=== PATIENT | female | born 1965 | race Caucasian/White ===

== ENCOUNTER 2016-06-14 09:45 | Emergency (ER) | payer OTHER ==
[2016-06-14] MEDS ORDERED: NS 1,000 ML IV ONE (10:17)
[2016-06-14] MEDS ORDERED: DIAZEPAM 10 MG/2 ML SYR IVP ONE ×3 (10:25→11:51)
[2016-06-14 10:45] LABS: % IMMATURE GRANULYOCYTES 0.3 % (0.0-1.1); ABSOLUTE IMMATURE GRANULOCYTES 0.03 10^3/uL (0.00-0.10); ADD DIFF? NO; ADD MORPH? NO; ADD SCAN? NO; ATYPICAL LYMPHOCYTE FLAG 0 (0-99); FRAGMENT RBC FLAG 0 (0-99); HEMATOCRIT 44.7 % (38.0-47.0); HEMOGLOBIN 15.7 g/dL (12.6-16.3); LEFT SHIFT FLG 0 (0-99); LIPEMIA HEMOLYSIS FLAG 90 (0-99); MEAN CELL HEMOGLOBIN CONCENTR. 35.1 g/dL (32.4-36.7); MEAN CELL VOLUME 85.5 fL (81.5-99.8); MEAN PLATELET VOLUME 8.9 fL (8.7-11.7); PLATELET CLUMPS FLAG 20 (0-99); PLATELET COUNT 280 10^3/uL (150-400); RED BLOOD CELL COUNT 5.23 10^6/uL (4.18-5.33); RED CELL DISTRIBUTION WIDTH 11.9 % (11.5-15.2)
[2016-06-14 10:46] LABS: COLOR YELLOW; LEUKOCYTE ESTERASE,URINE 1+ (NEGATIVE); NITRITE,URINE NEGATIVE (NEGATIVE); PH,URINE 7.5 (5.0-7.5)
--- NOTE | 2016-06-14 10:47 | UCPHY ---
H & P Patient Type: Established Time Seen by Provider: 06/14/16 09:57 HPI/ROS: This patient complains of severe diffuse muscle spasms in aches. She thinks this may be attributable to a TNF forrest medication that she started taking as injection once a month for her ankylosing spondylitis. The medication is golimumab ("Simponi"). After 1st dose of this taking the beginning of May resulted in some similar symptoms of lesser intensity and labs at that time drawn on 05/17 revealed a CPK of 340. Comp metabolic panel was normal at that time. Her ALT was minimally elevated at 99 and AST to 72. She hydrated had gradual improvement. After her 2nd injection-self injection to the leg at home on June 11 she has had gradually increasing muscle spasms to the hamstrings bilaterally, calf bilaterally back muscles in the neck muscles with increasing pain that is now severe intensity. She was prescribed Percocet but she does not like how she feels on Percocet so she has not taken this. Her recent history is also notable for right upper extremity the surgery to decompress ulnar neuropathy by Dr. Le on June 02. The Percocet was prescribed at that time. She reports mild arm pain is in a Ortho Glass splint since that surgery. ROS: No recent fevers or chills though she did have a febrile illness treated with an unknown antibiotic over the past week. She reports a skin rash over her joints and chest that is slightly burning in nature present since the injection on the -within 24 hours and she thinks that is worsening slightly in terms of severity. She has no oral lesions. No HEENT complaints at this time. She reports no shortness of breath. She has no abdominal pain. No urinary symptoms. 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 Avery Vazquez Ulnar nerve impingement right arm surgery by Dr. Le 06/02/16 - R. Wrist surg - Dr. 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 Eyes: Pupils equal and round no pallor or injection. ENT, Mouth: Mucous membranes moist. Respiratory: There are no retractions, lungs are clear to auscultation. Cardiovascular: Regular rate and rhythm. Gastrointestinal: Abdomen is soft and nontender, no masses, bowel sounds normal. Neurological: Alert with no focal deficits. Skin: There is a subtle confluent erythematous macular rash over the extensor surfaces of her joints in her hands and mildly in the anterior chest the blanches easily with pressure. No petechia or purpura. Right arm surgical incision to the volar aspect of the proximal forearm is clean dry intact Prolene sutures. No erythema warmth to touch. There is mild ecchymosis. No fluctuance. Musculoskeletal: The patient has tenderness to bilateral hamstring muscles and calf muscles. Extremities are symmetrical, full range of motion. Psychiatric: Patient is tearful and anxious DIFFERENTIAL DIAGNOSIS: After history and physical exam differential diagnosis was considered for myocites, viral syndrome, metabolic abnl, Constitutional: Initial Vital Signs Temperature (C) 36.6 C 06/14/16 11:05 Heart Rate 85 06/14/16 11:05 Respiratory Rate 18 06/14/16 11:05 Blood Pressure 135/62 H 06/14/16 11:05 O2 Sat (%) 96 06/14/16 11:05 O2 Delivery Mode Room Air Allergies/Adverse Reactions: acetaminophen [From Vicodin] Allergy (Verified 06/14/16 10:19) cephalexin monohydrate [From Keflex] Allergy (Verified 06/14/16 10:19) hydrocodone bitartrate [From Vicodin] Allergy (Verified 06/14/16 10:19) indomethacin Allergy (Verified 06/14/16 10:19) NSAIDS (Non-Steroidal Anti-Inflamma Allergy (Verified 06/14/16 10:19) Penicillins Allergy (Verified 06/14/16 10:18) Home Medications: Medication Instructions Recorded Diazepam [Valium 5 MG (*)] 5 mg PO TID PRN #15 tab 06/14/16 Methocarbamol [Robaxin 750 mg (*)] 750 - 1,500 mg PO QID PRN #30 tab 06/14/16 Nitrofurantoin Macrobid [Macrobid 100 mg PO BID #10 cap 06/14/16 100 mg (RX)] PERCOCET 2.5-325 MG TABLET 06/14/16 Remicade Inj 100 mg (*) 06/14/16 SIMPONI 06/14/16 Synthroid 06/14/16 Medical Decision Making ED Course/Re-evaluation: IV normal saline bolus Morphine 4 mg IV Valium 5 mg & 2.5 mg IV At 11:50 a.m. the patient reports that she still has 8/10 pain and muscle spasms diffusely including in her jaw. Despite this reports she appears more comfortable. I counseled her regarding her urinary tract infection she reports that she is having some pain in the left flank that feels like her kidney to her. Repeated valium 2.5 mg & morphine 4 mg She still reports minimal relief in seems to be quite emotionally distraught about her symptoms. Review of her labs reveals leukocytosis with a left shift that is mild, pyuria and bacteria, normal basic metabolic panel, mildly elevated LFTs consistent with last months levels and a CPK that while mildly elevated is lower than last month's CPK After 2nd round of medications the patient is discomfort is down to 6/10. I counseled regarding findings. While she has pyuria and bacteria do not think she has pyelonephritis given lack of fevers or other significant symptoms. Given concern over potential side effects her allergies to antibiotics will simply treat her with nitrofurantoin with urine culture pending. A call was placed to her wet machine operator at 1:00 p.m.. Will plan to get the patient home with follow up with Rheumatology. After workup, no evidence of significant rhabdomyolysis, significant my myocites or other concerning findings. It is unclear to me why she is having such significant muscle spasms. It may be a side effect of her TNF forrest. Will provide a script for methocarbamol in addition to Valium. - Data Points Laboratory Results: Laboratory Results 06/14/16 12:08 06/14/16 10:38 06/14/16 06/14/16 12:08 10:38 WBC 11.39 H 10^3/uL (3.80-9.50) RBC 5.23 10^6/uL (4.18-5.33) Hgb 15.7 g/dL (12.6-16.3) Hct 44.7 % 44.7 % (38.0-47.0) (38.0-47.0) MCV 85.5 fL (81.5-99.8) MCH 30.0 pg (27.9-34.1) MCHC 35.1 g/dL (32.4-36.7) RDW 11.9 % (11.5-15.2) Plt Count 280 10^3/uL (150-400) MPV 8.9 fL (8.7-11.7) Neut % (Auto) 56.8 % (39.3-74.2) Lymph % (Auto) 34.6 % (15.0-45.0) [place] % (Auto) 5.9 % (4.5-13.0) Eos % (Auto) 1.7 % (0.6-7.6) Baso % (Auto) 0.7 % (0.3-1.7) Nucleat RBC Rel Count 0.0 % (0.0-0.2) Absolute Neuts (auto) 6.48 10^3/uL (1.70-6.50) Absolute Lymphs (auto) 3.94 H 10^3/uL (1.00-3.00) Absolute Monos (auto) 0.67 10^3/uL (0.30-0.80) Absolute Eos (auto) 0.19 10^3/uL (0.03-0.40) Absolute Basos (auto) 0.08 10^3/uL (0.02-0.10) Absolute Nucleated RBC 0.00 10^3/uL (0-0.01) Immature Gran % 0.3 % (0.0-1.1) Immature Gran # 0.03 10^3/uL (0.00-0.10) ESR 13 MM/HR (0-20) Sodium 140 mEq/L (134-144) Potassium 4.1 mEq/L (3.5-5.2) Chloride 101 mEq/L (97-110) Carbon Dioxide 26 mEq/l (22-31) Anion Gap 13 mEq/L (8-16) BUN 12 mg/dL (7-23) Creatinine 0.9 mg/dL (0.6-1.0) Estimated GFR > 60 Glucose 99 mg/dL (70-100) Calcium 10.2 mg/dL (8.5-10.4) Total Bilirubin 1.3 mg/dL (0.1-1.4) Conjugated Bilirubin 0.3 mg/dL (0.0-0.5) Unconjugated Bilirubin 1.0 mg/dL (0.0-1.1) AST 82 H IU/L (14-46) ALT 96 H IU/L (9-52) Alkaline Phosphatase 99 IU/L (38-126) Creatine Kinase 243 H IU/L (0-156) CK-MB (CK-2) Fraction 2.13 ng/mL (0-4.55) CK-MB (CK-2) % 0.9 % (0.0-4.0) Creatine Kinase Interp NEGATIVE (NEGATIVE) Total Protein 8.0 g/dL (6.3-8.2) Albumin 4.5 g/dL (3.5-5.0) Urine Color YELLOW Urine Appearance CLEAR Urine pH 7.5 (5.0-7.5) Ur Specific [place] <= 1.005 (1.002-1.030) Urine Protein NEGATIVE (NEGATIVE) Urine Ketones NEGATIVE (NEGATIVE) Urine Blood TRACE H (NEGATIVE) Urine Nitrate NEGATIVE (NEGATIVE) Urine Bilirubin NEGATIVE (NEGATIVE) Urine Urobilinogen 0.2 EU (0.2-1.0) Ur Leukocyte Esterase 1+ H (NEGATIVE) Urine RBC 1-3 /hpf (0-3) Urine WBC 10-15 H /hpf (0-3) Ur Epithelial Cells 2+ H /lpf (NONE-1+) Ur Renal Epithelial Cell OCCASIONAL H /hpf (NONE SEEN) Urine Bacteria 1+ H /hpf (NONE SEEN) Urine Glucose NEGATIVE (NEGATIVE) Medications Given: Discontinued Medications Diazepam (Valium Injection) 5 mg IVP EDNOW ONE Stop: 06/14/16 10:26 Last Admin: 06/14/16 10:45 Dose: 5 mg Diazepam (Valium Injection) 2.5 mg IVP EDNOW ONE Stop: 06/14/16 11:12 Last Admin: 06/14/16 11:19 Dose: 2.5 mg Diazepam (Valium Injection) 2.5 mg IVP EDNOW ONE Stop: 06/14/16 11:52 Last Admin: 06/14/16 12:06 Dose: 2.5 mg Sodium Chloride (Ns) 1,000 mls @ 0 mls/hr IV ONCE ONE PRN Reason: Wide Open Stop: 06/14/16 10:18 Last Admin: 06/14/16 10:46 Dose: 1,000 mls Morphine Sulfate (Morphine) 4 mg IVP EDNOW ONE Stop: 06/14/16 10:24 Last Admin: 06/14/16 10:45 Dose: 4 mg Morphine Sulfate (Morphine) 4 mg IVP EDNOW ONE Stop: 06/14/16 11:52 Last Admin: 06/14/16 12:06 Dose: 4 mg Departure - Departure Disposition: Home, Routine, Self-Care Clinical Impression: Diffuse Muscle spasms, Cystitis Condition: Good Instructions: Muscle Spasm (ED), Urinary Tract Infection in Women (ED) Additional Instructions: Diagnoses: 1. Diffuse muscle spasms 2. Bladder infection Your ESR is normal today. Your lab findings reveal evidence of a bladder infection, mildly elevated white blood cell count, her CPK has improved compared to last month-your electrolytes are normal today. Plan: Drink plenty fluids Methocarbamol muscle relaxant Valium in addition if needed. No driving, alcohol work on your methocarbamol, Valium or Percocet. Tylenol or Percocet in addition if needed for pain Follow up with the wet machine operator this week Go to the emergency department for any significant worsening despite the treatment plan Stand Alone Forms: Work Excuse - PQRS PQRS Measurement: NA
[2016-06-14 10:53] LABS: BACTERIA 1+ /hpf (NONE SEEN); RENAL EPITHELIAL CELLS OCCASIONAL /hpf (NONE SEEN)
[2016-06-14 11:03] LABS: ALANINE AMINOTRANSFERASE 96 IU/L (9-52); ALBUMIN 4.5 g/dL (3.5-5.0); ALKALINE PHOSPHATASE 99 IU/L (38-126); ANION GAP 13 mEq/L (8-16); ASPARTATE AMINOTRANSFERASE 82 IU/L (14-46); BILIRUBIN,TOTAL 1.3 mg/dL (0.1-1.4); BILIRUBIN-CONJUGATED 0.3 mg/dL (0.0-0.5); CALCIUM 10.2 mg/dL (8.5-10.4); CARBON DIOXIDE 26 mEq/l (22-31); CHLORIDE 101 mEq/L (97-110); CREATININE 0.9 mg/dL (0.6-1.0); GLOMERULAR FILTRATION RATE > 60; GLUCOSE 99 mg/dL (70-100); POTASSIUM 4.1 mEq/L (3.5-5.2); SODIUM 140 mEq/L (134-144)
[2016-06-14 11:19] VITALS: TEMP 98; O2SAT 96
[2016-06-14 11:24] LABS: CK-MB INTERPRETATION NEGATIVE (NEGATIVE); CREATINE KINASE-MB FRACTION 2.13 ng/mL (0-4.55)
[2016-06-14] MEDS ORDERED: ONDANSETRON 4 MG/2 ML VIAL IVP ONE (11:25)
[2016-06-14 12:12] LABS: HEMATOCRIT 44.7 % (38.0-47.0)
[2016-06-14] MEDS ORDERED: NITROFURANTOIN MACROBID 100 MG CAP PO ONE (13:07)
[2016-06-14 13:55] VITALS: BP 122/65; PULSE 84; RESP 16
== END 2016-06-14 13:56 | disposition home or self-care (01) ==
LOC: CED 09:45
DX: M62.838 Other muscle spasm (principal); N30.90 Cystitis, unspecified without hematuria; R21 Rash and other nonspecific skin eruption
CPT/HCPCS: 80048-PO; 80076-PO; 81003-PO; 81015-PO; 82550-PO; 82553-PO; 85025-PO; 85652-PO; 96360-PO; 96361-PO; 96374-PO; 96375-PO; 96376-PO; 99215-PO; G0463-PO

== ENCOUNTER 2017-05-15 18:19 | Emergency (ER) | payer OTHER ==
[2017-05-15 18:28] VITALS: TEMP 97.7
--- NOTE | 2017-05-15 18:56 | EDPHY ---
H & P Stated Complaint: LUMBAR BACK PAIN X 1 MONTH NOW WITH RADIATION TO R BUTTOCK AND LEG/FOOT NUM Time Seen by Provider: 05/15/17 18:54 HPI/ROS: CHIEF COMPLAINT: Chronic low back pain, right hip pain HISTORY OF PRESENT ILLNESS: The patient has a several month history of low back pain and right hip pain. She has had fairly extensive evaluation today. She has had MRI of her lumbar spine, MRI of her pelvis and MRI of her right hip and right knee. The patient is currently under the care of multiple specialist. She is currently on Percocet which she states is not alleviating her pain. The patient denies any history of fever. She denies any history of acute fall or trauma. The patient complains primarily of right hip pain which is worsened with movement. The patient denies any bowel or bladder dysfunction. The patient denies any acute weakness. REVIEW OF SYSTEMS: A comprehensive 10 point review of systems is otherwise negative aside from elements mentioned in the history of present illness. Source: Patient Exam Limitations: No limitations - Personal History LMP (Females 10-55): Hysterectomy Current Tetanus/Diphtheria Vaccine: Yes - Medical/Surgical History Hx Asthma: No Hx Chronic Respiratory Disease: No Hx Diabetes: No Hx Cardiac Disease: No Hx Renal Disease: No Hx Cirrhosis: No Hx Alcoholism: No Hx HIV/AIDS: No Hx Splenectomy or Spleen Trauma: No Other PMH: spondylitis ankylosis/ Ortho surg to wrist/knee/Hyst - Social History Smoking Status: Never smoked - Physical Exam Exam: General Appearance: Alert, no distress Eyes: Pupils equal and round no pallor or injection ENT, Mouth: Mucous membranes moist Respiratory: There are no retractions, lungs are clear to auscultation Cardiovascular: Regular rate and rhythm Gastrointestinal: Abdomen is soft and nontender, no masses, bowel sounds normal Neurological: A&O, normal motor function, normal sensory exam, normal cranial nerves Skin: Warm and dry, no rashes Musculoskeletal: Tenderness to palpation in the right sacroiliac area, tenderness over the right greater trochanter Extremities: symmetrical, full range of motion Constitutional: Initial Vital Signs Temperature (C) 36.5 C 05/15/17 18:24 Heart Rate 96 05/15/17 18:24 Respiratory Rate 17 05/15/17 18:24 Blood Pressure 135/77 H 05/15/17 18:24 O2 Sat (%) 98 05/15/17 18:24 O2 Delivery Mode Room Air Allergies/Adverse Reactions: acetaminophen [From Vicodin] Allergy (Verified 05/15/17 18:23) aspirin Allergy (Verified 05/15/17 18:23) cephalexin monohydrate [From Keflex] Allergy (Verified 05/15/17 18:23) hydrocodone bitartrate [From Vicodin] Allergy (Verified 05/15/17 18:23) indomethacin Allergy (Verified 05/15/17 18:23) NSAIDS (Non-Steroidal Anti-Inflamma Allergy (Verified 05/15/17 18:23) Penicillins Allergy (Verified 05/15/17 18:23) Home Medications: Medication Instructions Recorded PERCOCET 2.5-325 MG TABLET 06/14/16 Synthroid 06/14/16 LORazepam [Ativan] 1 mg PO TID PRN #20 tab 05/15/17 Lidocaine 5% [Lidoderm 5% Patch 1 ea TD DAILY #12 patch 05/15/17 (*)] predniSONE [prednisone 20mg (RX)] 3 tab PO DAILY #15 tab 05/15/17 Medical Decision Making ED Course/Re-evaluation: I reviewed the patient's extensive MRI imaging over the past several months. Her examination demonstrates no evidence of an obvious spinal cord emergency. She presents to the ED with poorly controlled chronic pain. She has no evidence of an acute orthopedic or neuro surgical emergency on her current exam. The patient did receive an intranasal injection of ketamine and oral Ativan. I will prescribe her a prescription for Valium. I have encouraged her to continue to work with her primary care provider and neurologist for further evaluation of her symptoms. Differential Diagnosis: Differential diagnosis considered includes chronic pain syndrome, sacroiliitis, bursitis, disc herniation - Data Points Medications Given: Discontinued Medications Ketamine HCl (Ketamine) 50 mg NASAL EDNOW ONE Stop: 05/15/17 19:21 Last Admin: 05/15/17 19:44 Dose: 50 mg Lorazepam (Ativan) 1 mg PO EDNOW ONE Stop: 05/15/17 19:21 Last Admin: 05/15/17 19:43 Dose: 1 mg Departure - Departure Disposition: Home, Routine, Self-Care Clinical Impression: Chronic back pain Condition: Good Instructions: Musculoskeletal Pain (ED) Additional Instructions: 1. Ativan as needed for muscle relaxation. 2. Please follow up with your primary care provider and neurologist as scheduled. 3. Oral prednisone as prescribed 4. Please use lidocaine patches as prescribed Referrals: KLAUS DOMINGUEZ [Primary Care Provider] - As per Instructions
[2017-05-15] MEDS ORDERED: LORazepam 1 MG TAB PO ONE (19:20)
[2017-05-15] MEDS ORDERED: KETAMINE 500 MG/10 ML VIAL NASAL ONE (19:20)
[2017-05-15 20:11] VITALS: BP 123/82; PULSE 66; RESP 14; O2SAT 96
== END 2017-05-15 20:18 | disposition home or self-care (01) ==
DX: M54.5 Low back pain (principal); G89.29 Other chronic pain